=== PATIENT | male | born 1965 | race Two or more races ===

== ENCOUNTER 2018-10-16 18:23 | Emergency (ER) | payer OTHER ==
[~2018-10-16] VITALS: Ht 170.2 cm; Wt 81.6 kg
--- NOTE | 2018-10-16 18:42 | NUR ---
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 The pt that he was helping out is HIV positive. Rating a 5/10 pain on the left eye. No redness and swelling noted. A+O x4. Ambulatory. Skin warm to touch.
[2018-10-16 18:43] VITALS: BP 144/97
--- NOTE | 2018-10-16 19:04 | NUR ---
ED Nurse Note: Dylan lens has been initiated as per verbal order by PRISCA Lawler.
--- NOTE | 2018-10-16 19:25 | Emergency Room Report ---
History of Present Illness General Chief Complaint: General Complaint Source: Patient Present Illness HPI 53-year-old male patient presents the ER complaining of having been split in his eye one day ago and concern for possible HIV exposure. 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 Reports patient is HIV positive. Reports that he flushed his eye thoroughly following initial spitting incident. Reports that he was informed by his work today to come into the ER for further evaluation and treatment. Reports is been using Clear Eyes eyedrops today. Denies wearing contacts or glasses. Reports eye itchiness. Denies foreign body sensation. Denies eye crusting. Denies vision changes or loss. Denies history of HIV. Denies other acute complaints or symptoms.. Allergies: Coded Allergies: No Known Allergies (Unverified , 10/16/18) Patient History Past Medical History: see triage record Reviewed Nursing Documentation: PMH: Agreed; PSxH: Agreed Nursing Documentation-PMH Past Medical History: No Stated History Review of Systems All Other Systems: negative except mentioned in HPI Physical Exam Vital Signs Date Time Temp Pulse Resp B/P (MAP) Pulse Ox O2 Delivery O2 Flow Rate FiO2 10/16/18 18:26 98.1 63 20 144/97 98 Room Air 10/16/18 18:43 98 Sp02 EP Interpretation: reviewed, normal General Appearance: well appearing, no apparent distress, alert, GCS 15, non- toxic Head: normocephalic, atraumatic Eyes: left eye other - no erythema; bilateral eye normal inspection, bilateral eye PERRL, bilateral eye EOMI ENT: hearing grossly normal, normal pharynx, no angioedema, normal voice, uvula midline, moist mucus membranes Neck: full range of motion Respiratory: lungs clear, normal breath sounds, no rhonchi, no respiratory distress, no accessory muscle use, no wheezing, speaking full sentences Cardiovascular #1: regular rate, rhythm, no edema Neurologic: alert, oriented x3, responsive, motor strength/tone normal, sensory intact Psychiatric: mood/affect normal Skin: no rash Medical Decision Making PA Attestation Dr. Granger is my supervising Physician whom patient management has been discussed with. Diagnostic Impression: Primary Impression: Encounter for screening for HIV Additional Impression: Irritation of eye ER Course Pt. presents to the ED c/o "being spit in the left eye" and possible HIV exposure. Ddx considered but are not limited to HIV exposure, conjunctivitis, corneal abrasion. Vital signs: are WNL, pt. is afebrile ER COURSE: Informed patient that risk of transmission from HIV is low however will order rapid HIV test. No conjunctival injection, no crusting, low suspicion for conjunctivitis. Fluorescein uptake shows no corneal abrasion, negative Shamika sign, no rust ring , low suspicion for abrasion or foreign body. does not require abx at this time. Flushed with Dylan lens while in the ER. Rapid HIV test negative. Advised patient to followup with physician for repeat testing. Due to low likelihood of transmission and negative rapid HIV, do not believe patient requires postexposure prophylaxis treatment at this time. Discussed patient care with Dr. Osman, agrees with assessment and treatment plan. ER precautions given. followup with workman compensation physician. DISCHARGE: Rx provided for Naphcon-A eye drops for itching symptoms. At this time pt is stable for d/c to home. Patient is resting comfortably, in no acute distress, nontoxic appearing, talking without difficulty. Patient to take medications as instructed Will provide with patient care instructions and any necessary prescriptions. Care plan and follow-up instructions provided. Patient instructed to follow-up with primary care provider in 3 - 5 days. Patient questions asked and answered. Patient reports understanding and agreement to treatment plan. ER precautions given. Patient instructed to return to ER immediately for any new or worsening of symptoms including but not limited to increasing SOB, persistent fever, chest pain, intractable vomiting. - Please note that this Emergency Department Report was dictated using [employer] drm consultant technology software, occasionally this can lead to erroneous entry secondary to interpretation by the dictation equipment. Labs Test 10/16/18 18:50 HIV (1&2) Antibody Rapid Negative (NEGATIVE) Last Vital Signs Date Time Temp Pulse Resp B/P (MAP) Pulse Ox O2 Delivery O2 Flow Rate FiO2 10/16/18 18:43 63 20 Room Air 98 10/16/18 18:43 98.0 144/97 98 Status: improved Disposition: HOME, SELF-CARE Condition: Stable Scripts Naphazoline Hcl/Phenir Mal (NAPHCON-A EYE DROPS) 15 Ml Drops 15 ML OP BID, #15 ML Prov: Prabhu Beck 10/16/18 Referrals: NON PHYSICIAN (PCP) Patient Instructions: HIV Antibody Test, HIV Possible Exposure, Child, Viral Conjunctivitis Additional Instructions: Followup with primary care provider in 2-3 days for further treatment and referral to infectious disease. Discuss need for repeat testing at 3 months. Take medications as directed. Continue using eye drops for eye itching symptoms. Patient questions asked and answered. ER precautions given, patient instructed to return to ER immediately for any new or worsening of symptoms. Prabhu Beck Oct 16, 2018 19:25
[2018-10-16] MEDS ORDERED: Fluorescein Strips ONE (19:32)
[2018-10-16] MEDS ORDERED: Tetracaine 0.5% Opth 4ml Soln ONE (19:33)
--- NOTE | 2018-10-16 19:42 | NUR ---
HAND-OFF: Report given to GODFREY Gutierrez.
--- NOTE | 2018-10-16 19:44 | NUR ---
ED Nurse Note: Received report from Rossana/GODFREY. Pt is A/O X4. VSS. will continue to monitor.
[2018-10-16] MEDS ORDERED: Tetracaine 0.5% Opth 4ml Soln LEFT EYE ONE (19:45)
[2018-10-16] MEDS ORDERED: Fluorescein Strips LEFT EYE ONE (19:45)
[2018-10-16] MEDS ORDERED: NAPHCON-A EYE D15 ML OP (20:00)
[2018-10-16 20:27] VITALS: BP 136/91
--- NOTE | 2018-10-16 20:27 | NUR ---
ED Nurse Note: Pt has seen by Dr. TIM/PA. All orders carried out. "Medical Treatment Authorization form" issued. Pt is ready for discharge. D/c instruction and prescrition given to Pt and verbalized understanding. IV/ID band removed. Pt d/c from ED with steady gait.
== END 2018-10-16 20:27 | disposition home or self-care (01) ==
LOC: EMR 18:50
DX: Z11.4 Encounter for screening for human immunodeficiency virus [HIV] (principal); H57.89 Other specified disorders of eye and adnexa
CPT/HCPCS: 86703; 99283

== ENCOUNTER 2019-04-01 11:13 | Emergency (ER) | payer OTHER ==
[~2019-04-01] VITALS: Ht 170.2 cm; Wt 81.6 kg
[~2019-04-01 11:13] MED LIST: NAPHCON-A EYE D15 ML OP
[2019-04-01] MEDS ORDERED: NKM (11:19)
[2019-04-01 11:39] VITALS: BP 127/88
[2019-04-01] MEDS ORDERED: ROBAXIN-750750 MG PO (11:50)
[2019-04-01] MEDS ORDERED: IBUPROFEN600 MG ORAL (11:50)
[2019-04-01] MEDS ORDERED: LIDODERM700 M1 TOPIC (11:50)
[2019-04-01 11:58] VITALS: BP 125/68
--- NOTE | 2019-04-03 14:22 | Emergency Room Report ---
History of Present Illness General Chief Complaint: Back Injury Source: Patient Present Illness HPI 54-year-old male presents ED for evaluation. Patient walked in complaining of abdominal pain back pain. Pain is dull, 7 out of 10, nonradiating. Localized to upper back on the right side. 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 Denies any other injuries. No other aggravating relieving factors. Denies any other associated symptoms Allergies: Coded Allergies: No Known Allergies (Unverified , 10/16/18) Patient History Past Medical History: none Past Surgical History: none Pertinent Family History: none Social History: Denies: smoking, alcohol use, drug use Immunizations: UTD Reviewed Nursing Documentation: PMH: Agreed; PSxH: Agreed Nursing Documentation-PMH Past Medical History: No Stated History Review of Systems All Other Systems: negative except mentioned in HPI Physical Exam Vital Signs Date Time Temp Pulse Resp B/P (MAP) Pulse Ox O2 Delivery O2 Flow Rate FiO2 04/01/19 11:15 97.9 62 18 127/88 (101) 96 Room Air Sp02 EP Interpretation: reviewed, normal General Appearance: no apparent distress, alert, GCS 15, non-toxic Head: normocephalic Eyes: bilateral eye normal inspection, bilateral eye PERRL ENT: hearing grossly normal, normal pharynx, no angioedema, normal voice Neck: full range of motion, supple, no meningismus, no bony tend, supple/symm/ no masses, tender lateral Respiratory: chest non-tender, lungs clear, normal breath sounds, speaking full sentences Cardiovascular #1: normal inspection Gastrointestinal: normal inspection Rectal: deferred Genitourinary: no CVA tenderness Musculoskeletal: tender - R paraspinal thoracic pain Neurologic: alert, oriented x3, responsive, motor strength/tone normal, sensory intact, speech normal Psychiatric: normal inspection Skin: normal color Lymphatic: normal inspection Medical Decision Making Diagnostic Impression: Primary Impression: Injury of back Qualified Codes: S39.92XA - Unspecified injury of lower back, initial encounter ER Course Hospital Course 54-year-old male presents ED complaining of upper back pain s/p lifting heavy patient at [employer] Differential diagnoses include: pyelonephritis, kidney stone, muscle strain, Tspine fracture Clinical course Patient placed on stretcher. After initial history physical exam reveals middle -aged male in no acute distress. There is no vertebral body tenderness. There is no CVA tenderness. There is paraspinal tenderness just beneath the shoulder blade on the right spine. No shoulder blade tenderness. discussed findings with patient. Likely muscular given presentation. Will discharge with pain medications, muscle relaxer, Lidoderm patch. Safe for discharge with close outpatient follow-up. Patient agrees with plan. we'll provide referrals Diagnosis - back pain Stable and discharged to home with prescription for Motrin, robaxin, lidoderm. Followup with PMD. Return to ED if symptoms recur or worsen Last Vital Signs Date Time Temp Pulse Resp B/P (MAP) Pulse Ox O2 Delivery O2 Flow Rate FiO2 04/01/19 11:58 97.9 75 20 125/68 97 Room Air Status: improved Disposition: HOME, SELF-CARE Condition: Stable Scripts Lidocaine (Lidoderm) 1 Each Adh..patch 1 PATCH TOPIC DAILY, #7 PATCH 0 Refills Patch(es) may remain in place for up to 12 hours in any 24-hour period. Prov: Santy Jean Baptiste MD 04/01/19 Methocarbamol* (ROBAXIN-750*) 750 Mg Tablet 750 MG PO TID, #21 TAB 0 Refills Prov: Santy Jean Baptiste MD 04/01/19 Ibuprofen* (MOTRIN*) 600 Mg Tablet 600 MG ORAL Q8H PRN for For Pain, #30 TAB 0 Refills Prov: Santy Jean Baptiste MD 04/01/19 Referrals: NOT CHOSEN IPA/,REFERRING (PCP) [facility] Kierra Aldridge [facility] Departure Forms: Return to Work Return to Work Date: Apr 03, 2019 Work Restrictions: No Heavy Lifting Patient Instructions: Back Pain, Adult Santy Jean Baptiste MD Apr 03, 2019 14:22
== END 2019-04-01 11:58 | disposition home or self-care (01) ==
LOC: EMR 11:49
DX: S39.92XA Unspecified injury of lower back, initial encounter (principal); X50.0XXA Overexertion from strenuous movement or load, initial encounter; Y92.9 Unspecified place or not applicable
CPT/HCPCS: 99282

== ENCOUNTER 2019-04-17 15:18 | Emergency (ER) | payer OTHER ==
[~2019-04-17] VITALS: Ht 170.2 cm; Wt 81.6 kg
[~2019-04-17 15:18] MED LIST changes: +IBUPROFEN600 MG ORAL; +LIDODERM700 M1 TOPIC; +NKM; +ROBAXIN-750750 MG PO
--- NOTE | 2019-04-17 15:45 | NUR ---
ED Nurse Note: pt states he isnt able to recall what medicine splashed into his eye. pt to have eyewash per pa, online education manager aware. pt states eye still feels irritated.
[2019-04-17 15:46] VITALS: BP 114/69
--- NOTE | 2019-04-17 17:41 | NUR ---
ED Nurse Note: room available for pt to have eye flushed by medical office manager.
--- NOTE | 2019-04-17 18:20 | Emergency Room Report ---
History of Present Illness General Chief Complaint: Eye Problems Source: Patient Present Illness HPI 54-year-old male with no significant past medical history here complaining of pain and pressure his left eye after being splashed by an unknown medicine at work. Patient reports that he was trying to administer medication however does not recall the name of the medicine in the liquid form which it broke and splashed inside his eyes denies glass being exposed to his eye. Patient denies photophobia, blurred vision, headache, URI symptoms. Patient complains of minor burning sensation. Denies wearing contact lenses and glasses. Denies chest pain, shortness of breath, palpitation, abdominal pain, nausea vomiting. Has not taken any medication to alleviate his symptoms. Allergies: Coded Allergies: No Known Allergies (Unverified , 04/17/19) Patient History Past Medical History: see triage record Past Surgical History: unable to obtain Pertinent Family History: none Immunizations: UTD Reviewed Nursing Documentation: PMH: Agreed; PSxH: Agreed Nursing Documentation-PMH Past Medical History: No Stated History Review of Systems All Other Systems: negative except mentioned in HPI Physical Exam Vital Signs Date Time Temp Pulse Resp B/P (MAP) Pulse Ox O2 Delivery O2 Flow Rate FiO2 04/17/19 15:28 98.1 67 16 114/69 (84) 96 Room Air Sp02 EP Interpretation: reviewed, normal General Appearance: normal inspection, well appearing, no apparent distress, alert, GCS 15 Head: normocephalic, atraumatic Eyes: left eye other - Left eye irritation the conjunctive are no foreign body noted ENT: normal ENT inspection, hearing grossly normal, normal pharynx Neck: normal inspection, full range of motion, supple Respiratory: normal inspection, chest non-tender, lungs clear, normal breath sounds, no rhonchi, no retraction, no wheezing Cardiovascular #1: normal inspection, normal peripheral pulses, regular rate, rhythm, no murmur Gastrointestinal: normal inspection, non tender Rectal: deferred Genitourinary: no CVA tenderness Musculoskeletal: normal inspection, back normal Neurologic: normal inspection, alert, oriented x3, responsive Psychiatric: normal inspection, judgement/insight normal, memory normal Skin: no rash Lymphatic: normal inspection, no adenopathy Medical Decision Making PA Attestation Diagnosis and treatment plans were reviewed and discussed with my supervising physician Dr. Brenner Diagnostic Impression: Primary Impression: Foreign body in eye ER Course 54-year-old male with no significant past medical history here complaining of pain and pressure his left eye after being splashed by an unknown medicine at work. Patient reports that he was trying to administer medication however does not recall the name of the medicine in the liquid form which it broke and splashed inside his eyes denies glass being exposed to his eye. Patient denies photophobia, blurred vision, headache, URI symptoms. Patient complains of minor burning sensation. Denies wearing contact lenses and glasses. Denies chest pain, shortness of breath, palpitation, abdominal pain, nausea vomiting. Has not taken any medication to alleviate his symptoms. Ddx considered but are not limited to: bacterial conjunctivitis, allergic conjunctivitis, viral conjunctivitis, periorbital cellulitis, global trauma Vital signs: are WNL, pt. is afebrile H&PE are most consistent with: Foreign body of my Ddx considered but are not limited to: bacterial conjunctivitis, allergic conjunctivitis, viral conjunctivitis, periorbital cellulitis, global trauma Vital signs: are WNL, pt. is afebrile H&PE are most consistent with: Foreign body in eye and conjunctivitis ORDERS: Zaditor, ofloxacin eyedrops ED INTERVENTIONS: eye lavage DISCHARGE: At this time pt. is stable for d/c to home. Will provide printed patient care instructions, and any necessary prescriptions. Care plan and follow up instructions have been discussed with the patient prior to discharge. I advised the patient to follow-up with primary doctor for referral to electronic operator at this time no visible foreign body noted patient has full sensation and no photophobia no blurry vision the eye ORDERS: none required at this time, the diagnosis is clinical ED INTERVENTIONS: None required at this time. DISCHARGE: At this time pt. is stable for d/c to home. Will provide printed patient care instructions, and any necessary prescriptions. Care plan and follow up instructions have been discussed with the patient prior to discharge. Last Vital Signs Date Time Temp Pulse Resp B/P (MAP) Pulse Ox O2 Delivery O2 Flow Rate FiO2 04/17/19 15:46 98.1 78 16 114/69 96 Room Air Disposition: HOME, SELF-CARE Condition: Stable Scripts Ketotifen Fumarate (ZADITOR) 5 Ml Drops 1 DROP LEFT EYE TID for 7 Days, #5 ML 0 Refills Prov: Sahelimoghavami,Nahal PA 04/17/19 Ofloxacin (Ofloxacin) 5 Ml Drops 2 DROP OP Q6H for 5 Days, #5 ML Prov: Bi Mcdowell 04/17/19 Referrals: NOT CHOSEN IPA/,REFERRING (PCP) Patient Instructions: Bacterial Conjunctivitis, [id number], Eye Foreign Body , [id number] Additional Instructions: Due to exposure to unknown medicine IV washing her eyes to clear of any damage at this time he will be discharged with [id number] eyedrops for dry eyes as well as antibiotic eyedrop due to possible eye infection. Follow with an electronic operator Bi Mcdowell Apr 17, 2019 18:19
[2019-04-17] MEDS ORDERED: ZADITOR5 ML LEFT EYE (18:21)
[2019-04-17] MEDS ORDERED: OFLOXACIN10 ML OP (18:21)
[2019-04-17 18:45] VITALS: BP 108/77
--- NOTE | 2019-04-17 18:45 | NUR ---
ER DISCHARGE NOTE: Patient is cleared to be discharged per ERMD, pt is aox4, on room air, with stable vital signs. pt was given dc and prescription instructions, work comp info given, pt was able to verbalize understanding, pt id band removed. pt is able to ambulate with steady gait. pt took all belongings.
== END 2019-04-17 18:45 | disposition home or self-care (01) ==
LOC: EMR 16:23
DX: T15.92XA Foreign body on external eye, part unspecified, left eye, initial encounter (principal); X58.XXXA Exposure to other specified factors, initial encounter; Y92.9 Unspecified place or not applicable
CPT/HCPCS: 99282